=== PATIENT | male | born 1985 | race Two or more races ===

== ENCOUNTER 2021-02-16 21:47 | Emergency (ER) | payer BC ==
[~2021-02-16] VITALS: Ht 185.4 cm; Wt 109.0 kg
[2021-02-16] MEDS ORDERED: SODIUM CHLORIDE 0.9% 1,000 ML IV ONE (22:30)
[2021-02-16] MEDS ORDERED: ACETAMINOPHEN 325MG TABLET PO STA (22:48)
[2021-02-17 00:02] LABS: CLARITY URINE CLEAR (CLEAR); COLOR URINE YELLOW (YELLOW); KETONES URINE TRACE (NEGATIVE); LEUKOCYTE ESTERASE URINE NEGATIVE (NEGATIVE); NITRITE URINE NEGATIVE (NEGATIVE); OCCULT BLOOD URINE 1+ (NEGATIVE); PROTEIN URINE TRACE (NEGATIVE); SPECIFIC GRAVITY URINE 1.027 (1.005-1.030); UROBILINOGEN URINE 0.2 E.U./dL (0.2-1.0)
[2021-02-17 00:03] LABS: HEMATOCRIT. 37.8 % (42.0-52.0); HEMOGLOBIN. 12.8 g/dL (14.0-18.0); MEAN PLATELET VOLUME 8.4 fl (7.4-10.4); PLATELET 198 x1000/uL (130-400); RED BLOOD CELL COUNT 4.91 mill/uL (4.7-6.1); RED CELL DISTRIBUTION WIDTH 13.4 % (11.6-14.6)
[2021-02-17 00:07] LABS: CHLORIDE 105 mEq/L (98-107)
[2021-02-17 00:10] LABS: INR 1.1; PROTHROMBIN TIME 11.6 sec (9.6-11.0)
[2021-02-17 01:49] LABS: PLATELET ESTIMATE NORMAL
[2021-02-17] MEDS ORDERED: CEFTRIAXONE 1 G PREMIX 50 ML IV ONE (02:15)
[2021-02-17] MEDS ORDERED: DEXT 5%/0.45% NACL 1000ML 1,000 ML IV SCH (06:00)
[2021-02-17] MEDS ORDERED: PIPERACILLIN/TAZ 3.375G PREMIX 50 ML IV SCH (06:00)
[2021-02-17] MEDS ORDERED: ONDANSETRON HCL 4MG/2ML INJ IV PRN (06:00)
[2021-02-17] MEDS ORDERED: HYDROMORPHONE HCL/PF 2MG/ML CPJ IV PRN (06:00)
[2021-02-17] MEDS ORDERED: ACETAMINOPHEN 325MG TABLET PO PRN (06:00)
[2021-02-17 13:54] VITALS: BP 131/87
== END 2021-02-17 13:55 | disposition home or self-care (01) ==
LOC: ER 21:47 → EDBEDREQTM 02-17 02:06 → EDBEDREQSVC 02-17 02:06 → EDBEDREQ 02-17 02:06 → EDBEDREQSVC 02-17 06:53 → EDBEDREQDT 02-17 06:53 → EDBEDREQTM 02-17 06:53 → CANBEDREQ 02-17 13:54 → ER 02-17 13:55
DX: U07.1 COVID-19 (principal); K37 Unspecified appendicitis; R00.0 Tachycardia, unspecified; R31.9 Hematuria, unspecified; B96.89 Other specified bacterial agents as the cause of diseases classified elsewhere
CPT/HCPCS: 36415; 71045; 74176; 80053; 81003; 82962; 83605; 84145; 84484; 85025; 85610; 87040; 87086; 87426; 93005; 96361; 96365; 96366; 96367; 99285; J0696; J2543; J7030; Z7610